=== PATIENT | female | born 1995 | race Caucasian/White ===

== ENCOUNTER 2016-11-08 10:07 | Emergency (ER) | payer OTHER ==
[~2016-11-08] VITALS: Ht 165.1 cm; Wt 59.9 kg
[2016-11-08 10:10] VITALS: BP_SYST 132
--- NOTE | 2016-11-08 10:30 | NUR ---
Placed in room 3 .
--- NOTE | 2016-11-08 10:40 | NUR ---
ER at bedside examining patient.
--- NOTE | 2016-11-08 10:40 | NUR ---
pt stated she fell off the horse this morning around 9:30 and she couldn't rember anything.vomited once prior to arrival. pt is fully awake,alert,oriented x3.denies any pain and disconfot. Full ROM.no distress noted.
[2016-11-08 11:51] VITALS: BP_SYST 127
--- NOTE | 2016-11-08 11:52 | NUR ---
Patient given written and verbal discharge instructions and verbalizes understanding. ER MD discussed with patient the results and treatment provided. Patient in stable condition. ID arm band removed. IV catheter removed intact and dressing applied, no active bleeding. Rx of NONE given. Patient educated on pain management and to follow up with PMD. Pain Scale 0/10. Opportunity for questions provided and answered.
== END 2016-11-08 11:51 | disposition home or self-care (01) ==
LOC: SED 10:07
DX: S09.90XA Unspecified injury of head, initial encounter (principal); R11.10 Vomiting, unspecified; R51 Headache; V80.010A Animal-rider injured by fall from or being thrown from horse in noncollision accident, initial encounter; Y93.89 Activity, other specified; Y92.89 Other specified places as the place of occurrence of the external cause; Y99.8 Other external cause status
CPT/HCPCS: 70450-TC; 72125-TC; 81025; 99284